=== PATIENT | female | born 1990 | race Caucasian/White ===

== ENCOUNTER 2022-12-11 02:30 | Emergency (ER) | payer OTHER ==
[~2022-12-11] VITALS: Ht 165.1 cm; Wt 62.6 kg
[~2022-12-11 02:30] MED LIST: AUGMENTIN 875-1 EACH PO; CELEXA20 MG PO; MONTELUKAST SOD10 MG PO; NORCO 5-325 TA1 EACH PO; PROVIGIL200 MG PO; WELLBUTRIN XL300 MG PO; ZOFRAN ODT8 MG PO
--- OUTSIDE RECORDS SUMMARY | 2022-12-11 02:32 | XMS ---
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 E.DRogelio VISIT COUNT (12 MO.) [address] [place] [id number] [place] Rogelio TOTAL 2 NOTE: Visits indicate total known visits. ED/UCC VISIT TRACKING (12 MO.) 12/11/2022 02:[address] [facility] TYPE: Emergency COMPLAINT: - LT LOWER BACK PAIN 01/25/2022 23:41 [facility] TYPE: Emergency COMPLAINT: - abdominal pain DIAGNOSES: - Generalized abdominal pain - Nausea with vomiting, unspecified - abdominal pain INPATIENT VISIT TRACKING (12 MO.) No inpatient visits to display in this time frame [email or web address]
[2022-12-11] MEDS ORDERED: CIPROFLOXACIN500 MG PO (02:43)
[2022-12-11] MEDS ORDERED: LAMOTRIGINE150 MG PO (02:43)
[2022-12-11] MEDS ORDERED: NORTRIPTYLINE H10 MG PO (02:43)
[2022-12-11] MEDS ORDERED: ADDERALL XR 1515 MG PO (02:44)
[2022-12-11] MEDS ORDERED: FLOMAX0.4 MG PO (04:24)
[2022-12-11] MEDS ORDERED: ONDANSETRON ODT4 MG PO (04:24)
[2022-12-11] MEDS ORDERED: KETOROLAC TROME10 MG PO (04:24)
[2022-12-11] MEDS ORDERED: HYDROCODON-ACE1 EA10 PO (04:24)
[2022-12-11 04:45] VITALS: BP 121/85
== END 2022-12-11 04:45 | disposition home or self-care (01) ==
LOC: ED 02:30
DX: N13.2 Hydronephrosis with renal and ureteral calculous obstruction (principal); J45.909 Unspecified asthma, uncomplicated; Z79.899 Other long term (current) drug therapy
CPT/HCPCS: 36415; 74176; 80053; 83690; 84703; 85025; 96374; 96375; 99284-25; A9270; J1885; J2270; J2405; J7030